=== PATIENT | female | born 1985 | race Caucasian/White ===

== ENCOUNTER 2018-07-21 04:57 | Inpatient (IN) | payer OTHER ==
[2018-07-21] MEDS ORDERED: Carboprost Tromethamine 250 MCG/1 ML Amp IM PRN (05:13)
[2018-07-21] MEDS ORDERED: Nalbuphine 10 MG/1 ML Vial IVPUSH PRN (05:13)
[2018-07-21] MEDS ORDERED: Water For Irrigation,Sterile 1,000 ML Container IRR PRN (05:13)
[2018-07-21] MEDS ORDERED: Methylergonovine 0.2 MG/1 ML Amp IM PRN (05:13)
[2018-07-21] MEDS ORDERED: Misoprostol 200 MCG Tab PO PRN (05:13)
[2018-07-21] MEDS ORDERED: Sodium Chloride 0.9% 2.5 ML Syringe FLUSH PRN (05:13)
[2018-07-21] MEDS ORDERED: Lidocaine 1% 50 ML MDV INJECT PRN (05:13)
[2018-07-21] MEDS ORDERED: Ondansetron 4 MG/2 ML SDV IV PRN (05:13)
[2018-07-21] MEDS ORDERED: Sodium Chloride 0.9% 10 ML Syringe FLUSH PRN (05:13)
[2018-07-21] MEDS ORDERED: Butorphanol 1 MG/ML SDV IVPUSH PRN (05:13)
[2018-07-21] MEDS ORDERED: Terbutaline 1 MG/ML SDV SUBCUT PRN (05:13)
[2018-07-21] MEDS ORDERED: Tranexamic Acid 1,000 MG in Sodium Chloride 0.9% 100 ML IV PRN (05:13)
[2018-07-21] MEDS ORDERED: Oxytocin/0.9 % Sodium Chloride 30 UNIT/500 ML BAG IV SCH ×2 (05:15)
[2018-07-21] MEDS: Lactated Ringers 1,000 ML IV SCH ×3 (05:38→16:16)
--- NOTE | 2018-07-21 10:37 | PCM.PREANE ---
Preanesthetic Assessment - Anesthesia/Transfusion/Family Hx Anesthesia History: Prior Anesthesia Without Reaction Transfusion History: No Prior Transfusion(s) Type of Transfusion Reactions: Reports: Unknown - Review of Systems General: No Symptoms Pulmonary: No Symptoms Cardiovascular: No Symptoms Gastrointestinal: No Symptoms Neurological: No Symptoms Other: Reports: None - Physical Assessment Height: 5 ft 5 in Weight: 69.853 kg ASA Class: 2 Mental Status: Alert & Oriented x3 Airway Class: Mallampati = 2 Dentition: Reports: Normal Dentition Thyro-Mental Finger Breadths: 3 Mouth Opening Finger Breadths: 3 ROM/Head Extension: Full Lungs: Clear to Auscultation, Normal Respiratory Effort Cardiovascular: Regular Rate, Regular Rhythm - Lab Values: Laboratory Last Values WBC 9.86 K/uL (4.0-11.0) 07/21/18 05:29 RBC 3.79 M/uL (4.30-5.90) L 07/21/18 05:29 Hgb 13.1 g/dL (12.0-16.0) 07/21/18 05:29 Hct 37.2 % (36.0-46.0) 07/21/18 05:29 MCV 98.2 fL (80.0-98.0) H 07/21/18 05:29 MCH 34.6 pg (27.0-32.0) H 07/21/18 05:29 MCHC 35.2 g/dL (31.0-37.0) 07/21/18 05:29 RDW Std Deviation 44.5 fl (28.0-62.0) 07/21/18 05:29 RDW Coeff of Teodoro 12 % (11.0-15.0) 07/21/18 05:29 Plt Count 188 K/uL (150-400) 07/21/18 05:29 MPV 9.50 fL (7.40-12.00) 07/21/18 05:29 Nucleated RBC % 0.0 /100WBC 07/21/18 05:29 Nucleated RBCs # 0 K/uL 07/21/18 05:29 Blood Type A POSITIVE 07/21/18 05:29 Antibody Screen NEGATIVE 07/21/18 05:29 - Allergies Allergies/Adverse Reactions: Allergies Allergy/AdvReac Type Severity Reaction Status Date / Time No Known Allergies Allergy Verified 02/04/14 08:18 - Acknowledgements Anesthesia Type Planned: Epidural Pt an Appropriate Candidate for the Planned Anesthesia: Yes Alternatives and Risks of Anesthesia Discussed w Pt/Guardian: Yes Pt/Guardian Understands and Agrees with Anesthesia Plan: Yes PreAnesthesia Questionnaire - Past Health History Medical/Surgical History: Denies Medical/Surgical History HEENT History: Reports: None Cardiovascular History: Reports: Other (See Below) Other Cardiovascular History: Varicose veins to left leg from foot to mid thigh. 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 Female Surgical History: Reports: Dilitation & Evacuation - SUBSTANCE USE Smoking Status *Q: Never Smoker Tobacco Use Within Last Twelve Months: No Second Hand Smoke Exposure: No Recreational Drug Use History: No - HOME MEDS Home Medications: Home Meds Acetaminophen [Tylenol Extra Strength] 500 mg PO Q4H PRN #1 tab 02/05/14 [Rx] Ibuprofen [Motrin] 400 mg PO Q4H PRN #1 tablet 02/05/14 [Rx] Lanolin [Lansinoh HPA] 40 gm TOP ASDIRECTED PRN #1 crm 02/05/14 [Rx] - CURRENT (IN HOUSE) MEDS Current Meds: Current Medications Butorphanol Tartrate (Stadol) 1 mg IVPUSH Q1H PRN PRN Reason: Pain Carboprost Tromethamine (Hemabate Ds) 250 mcg IM ASDIRECTED PRN PRN Reason: Post Hemorrhage Lactated Ringer's (Ringers, Lactated) 1,000 mls @ 150 mls/hr IV ASDIRECTED YEE Last Admin: 07/21/18 10:33 Dose: 150 mls/hr Oxytocin/Sodium Chloride (Oxytocin 30 Unit/500 Ml-Ns) 30 unit in 500 mls @ 999 mls/hr IV TITRATE YEE Oxytocin/Sodium Chloride (Oxytocin 30 Unit/500 Ml-Ns) 30 unit in 500 mls @ 2 mls/hr IV TITRATE YEE; Protocol Last Titration: 07/21/18 09:54 Dose: 8 munits/min, 8 mls/hr Tranexamic Acid 1,000 mg/ (Sodium Chloride) 110 mls @ 660 mls/hr IV ONETIME PRN PRN Reason: Bleeding Lidocaine HCl (Xylocaine 1%) 50 ml INJECT ONETIME PRN PRN Reason: Laceration repair Methylergonovine Maleate (Methergine) 0.2 mg IM ASDIRECTED PRN PRN Reason: Post Hemorrhage Misoprostol (Cytotec) 200 mcg PO ONETIME PRN PRN Reason: Post Hemorrhage Nalbuphine HCl (Nubain) 10 mg IVPUSH Q1H PRN PRN Reason: Pain (severe 7-10) Ondansetron HCl (Zofran) 4 mg IV Q6H PRN PRN Reason: Nausea/Vomiting Sodium Chloride (Saline Flush) 10 ml FLUSH ASDIRECTED PRN PRN Reason: Keep Vein Open Sodium Chloride (Saline Flush) 2.5 ml FLUSH ASDIRECTED PRN PRN Reason: Keep Vein Open Sterile Water (Sterile Water For Irrigation) 1,000 ml IRR ASDIRECTED PRN PRN Reason: delivery Terbutaline Sulfate (Brethine) 0.25 mg SUBCUT ASDIRECTED PRN PRN Reason: Tacysystole
[2018-07-21] MEDS ORDERED: Lidocaine HCl/EPINEPHrine 5 ML IJ ONE (10:45)
--- NOTE | 2018-07-21 15:34 | PCM.DEL ---
L & D Note - General Info Date of Service: 07/21/18 - Delivery Note Labor: Induced by Oxytocin Delivery Outcome: Livebirth Infant Delivery Method: Spontaneous Vaginal Delivery-Single Delivery Mode: Spontaneous Presentation: Left Occiput Anterior (SHAN) Nuchal Cord: Present, Reduced Prep: Other Anesthesia Type: Epidural Amniotic Fluid Description: Clear Episiotomy Type: None Laceration: None Placenta: Intact, Spontaneous Cord: 3 Vessels Estimated Blood Loss: 50 Resuscitation Needed: No Score 1 min: 8 Score 5 min: 9 Induction Criteria - Weiss Score Weiss Score Dilation: 1-2 cm Weiss Score Effacement: 40-50% Weiss Score Infant's Station: -3 Weiss Score Consistency: Firm Weiss Score Cervix Position: Midposition Weiss Score Total: 3 Weiss Score Presenting Part: Reports: Cephalic - Induction Gestational Age >/= 39 wks: Yes Estimated Pelvis: Reports: Adequate Reassuring Monitoring Strip: Yes Absence of Tachy Systole: Yes - General Info Date of Service: 07/21/18 - Patient Data Weight - Most Recent: 154 lb Lab Results Last 24 Hours: Laboratory Results - last 24 hr 07/21/18 07/21/18 Range/Units 05:29 05:29 WBC 9.86 (4.0-11.0) K/uL RBC 3.79 L (4.30-5.90) M/uL Hgb 13.1 (12.0-16.0) g/dL Hct 37.2 (36.0-46.0) % MCV 98.2 H (80.0-98.0) fL MCH 34.6 H (27.0-32.0) pg MCHC 35.2 (31.0-37.0) g/dL RDW Std Deviation 44.5 (28.0-62.0) fl RDW Coeff of Teodoro 12 (11.0-15.0) % Plt Count 188 (150-400) K/uL MPV 9.50 (7.40-12.00) fL Nucleated RBC % 0.0 /100WBC Nucleated RBCs # 0 K/uL Blood Type A POSITIVE Antibody Screen NEGATIVE Med Orders - Current: Current Medications Butorphanol Tartrate (Stadol) 1 mg IVPUSH Q1H PRN PRN Reason: Pain Carboprost Tromethamine (Hemabate Ds) 250 mcg IM ASDIRECTED PRN PRN Reason: Post Hemorrhage Lactated Ringer's (Ringers, Lactated) 1,000 mls @ 150 mls/hr IV ASDIRECTED YEE Last Admin: 07/21/18 10:33 Dose: 150 mls/hr Oxytocin/Sodium Chloride (Oxytocin 30 Unit/500 Ml-Ns) 30 unit in 500 mls @ 999 mls/hr IV TITRATE YEE Oxytocin/Sodium Chloride (Oxytocin 30 Unit/500 Ml-Ns) 30 unit in 500 mls @ 2 mls/hr IV TITRATE YEE; Protocol Last Titration: 07/21/18 14:29 Dose: 0 munits/min, 0 mls/hr Tranexamic Acid 1,000 mg/ (Sodium Chloride) 110 mls @ 660 mls/hr IV ONETIME PRN PRN Reason: Bleeding Lidocaine HCl (Xylocaine 1%) 50 ml INJECT ONETIME PRN PRN Reason: Laceration repair Methylergonovine Maleate (Methergine) 0.2 mg IM ASDIRECTED PRN PRN Reason: Post Hemorrhage Misoprostol (Cytotec) 200 mcg PO ONETIME PRN PRN Reason: Post Hemorrhage Nalbuphine HCl (Nubain) 10 mg IVPUSH Q1H PRN PRN Reason: Pain (severe 7-10) Ondansetron HCl (Zofran) 4 mg IV Q6H PRN PRN Reason: Nausea/Vomiting Sodium Chloride (Saline Flush) 10 ml FLUSH ASDIRECTED PRN PRN Reason: Keep Vein Open Sodium Chloride (Saline Flush) 2.5 ml FLUSH ASDIRECTED PRN PRN Reason: Keep Vein Open Sterile Water (Sterile Water For Irrigation) 1,000 ml IRR ASDIRECTED PRN PRN Reason: delivery Terbutaline Sulfate (Brethine) 0.25 mg SUBCUT ASDIRECTED PRN PRN Reason: Tacysystole Discontinued Medications Fentanyl/Bupivacaine HCl (Vodweotw-Eeorh-Fi 2 Mcg/Ml-0.125%) Confirm Administered Dose 100 mls @ as directed .ROUTE .[employer]-MED ONE Stop: 07/21/18 10:40 Lidocaine/Epinephrine (Lidocaine 1.5%-Epi 1:200,000) Confirm Administered Dose 5 ml IJ .STK-MED ONE Stop: 07/21/18 10:46 - Problem List & Annotations (1) Vaginal delivery SNOMED Code(s): 941518991 Code(s): O80 - ENCOUNTER FOR FULL-TERM UNCOMPLICATED DELIVERY Status: Acute Current Visit: No - Problem List Review Problem List Initiated/Reviewed/Updated: Yes - My Orders Last 24 Hours: My Active Orders 07/21/18 05:13 Patient Status [ADT] Routine Bedrest Bathroom Privileges [RC] ASDIRECTED Communication Order [RC] ASDIRECTED May Shower [RC] ASDIRECTED Notify Provider [RC] PRN Oxygen Therapy [RC] ASDIRECTED Up ad Sara [RC] ASDIRECTED Vital Signs [RC] PER UNIT ROUTINE Butorphanol [Stadol] 1 mg IVPUSH Q1H PRN Carboprost Tromethamine [Hemabate DS] 250 mcg IM ASDIRECTED PRN Lidocaine 1% [Xylocaine 1%] 50 ml INJECT ONETIME PRN Methylergonovine [Methergine] 0.2 mg IM ASDIRECTED PRN Nalbuphine [Nubain] 10 mg IVPUSH Q1H PRN Ondansetron [Zofran] 4 mg IV Q6H PRN Sodium Chloride 0.9% [Saline Flush] 10 ml FLUSH ASDIRECTED PRN Sodium Chloride 0.9% [Saline Flush] 2.5 ml FLUSH ASDIRECTED PRN Terbutaline [Brethine] 0.25 mg SUBCUT ASDIRECTED PRN Tranexamic Acid [Cyklokapron] 1,000 mg Sodium Chloride 0.9% [Normal Saline] 100 ml IV ONETIME Water For Irrigation,Sterile [Sterile Water for Irrigation] 1,000 ml IRR ASDIRECTED PRN miSOPROStol [Cytotec] 200 mcg PO ONETIME PRN Scalp Electrode [WOMSER] Per Unit Routine Peripheral IV Insertion Adult [OM.PC] Routine Resuscitation Status Routine 07/21/18 05:15 Lactated Ringers [Ringers, Lactated] 1,000 ml IV ASDIRECTED Oxytocin/0.9 % Sodium Chloride [Oxytocin 30 Unit/500 ML-NS] 30 unit in 500 ml IV TITRATE Oxytocin/0.9 % Sodium Chloride [Oxytocin 30 Unit/500 ML-NS] 30 unit in 500 ml IV TITRATE Medication Administration Instruction [OM.PC] Q3H 07/21/18 Breakfast Clear Liquid Diet [DIET]
[2018-07-21] MEDS ORDERED: Bisacodyl 10 MG Supp RECTAL PRN (15:35)
[2018-07-21] MEDS ORDERED: oxyCODONE 5 MG Tab PO PRN (15:35)
[2018-07-21] MEDS ORDERED: Docusate Sodium 100 MG Cap PO PRN (15:35)
[2018-07-21] MEDS ORDERED: Witch Hazel Medicated Pads 40/Jar TOP PRN (15:35)
[2018-07-21] MEDS ORDERED: Ibuprofen 400 MG Tab PO PRN (15:35)
[2018-07-21] MEDS ORDERED: Acetaminophen 500 MG Tab PO PRN (15:35)
[2018-07-21] MEDS ORDERED: Benzocaine/Menthol 20%-0.5% Spray 78 GM Cannister TOP PRN (15:35)
[2018-07-21] MEDS ORDERED: Lanolin 100% Cream 7 GM Tube TOP PRN (15:35)
[2018-07-21] MEDS ORDERED: ceFAZolin 2 GM in Premix Bag 1 BAG IV ONE (16:00)
[2018-07-21] MEDS ORDERED: ceFAZolin/Dextrose,Iso-Osmotic 2 GM/50 ML Duplex Bag IV ONE (16:30)
[2018-07-21] MEDS: Ibuprofen 800 MG Tab PO PRN (20:21)
[2018-07-22] MEDS: Acetaminophen 500 MG Tab PO PRN ×3 (00:38→13:34)
--- NOTE | 2018-07-22 01:28 | OR ---
SURGEON: Althea Aragon MD DATE OF PROCEDURE: 07/21/2018 PREOPERATIVE DIAGNOSES: 1. Term at 39 weeks gestation. 2. Elective Induction of labor. 3. History of precipitate labor, lives remote from the hospital. POSTOPERATIVE DIAGNOSES: 1. Term at 39 weeks gestation. 2. Elective Induction of labor. 3. History of precipitate labor, lives remote from the hospital. 4. Delivered. PROCEDURE: Spontaneous vaginal delivery. ANESTHESIA: Epidural. ESTIMATED BLOOD LOSS: 50 mL. COMPLICATIONS: None. DISPOSITION: Mother and baby stable in Labor and Delivery room, bonding. FINDINGS: Female infant, weight pending at dictation. scores 8 and 9 at one and five minute respectively. Grossly normal placenta with three-vessel cord. Intact perineum. BRIEF HISTORY: [place] is a G9, P5, who was admitted this morning at 39 weeks gestation for induction of labor due to history of precipitate labor and living remote from the hospital. Her care was complicated by placenta synechiae with adequate growth on serial ultrasounds with no parts entrapment seen. She is GBS negative. She was admitted, oxytocin infusion started and titrated up as per protocol for induction of labor. Artificial rupture of membranes was performed at about 10:30 this morning when she was 3 cm dilated, 80% effaced, and station -2, with clear amniotic fluid noted. Contractions then became regular and she became fully dilated approximately 4 hours later and commenced active pushing. She pushed for about 40 minutes bringing the head down to +4 station and was set up for delivery in a modified dorsal lithotomy position. heart tracing was category 1 during the intrapartum phase and category 2 at second stage. DESCRIPTION OF PROCEDURE: She had a spontaneous vaginal delivery of a live female infant in a left occipital anterior position with a nuchal cord x1 which was easily reduced. No difficulty delivering the anterior and posterior shoulders and the rest of the baby. The baby was vigorous and cried spontaneously at . It was then delivered onto the maternal abdomen and delayed cord clamping was observed with the cord subsequently cut by the father of the baby. With delivery of the , oxytocin infusion was converted to titration for active management of third stage of labor. Cord blood and gases were obtained. Placenta was delivered by controlled cord traction appeared to be complete and intact. Examination of the perineum revealed no lacerations. Uterine massage was performed. The uterus was found to be well contracted below the umbilicus. The patient tolerated the procedure well. Sponge, instrument, and needle counts were correct at the end of the delivery. IJEOMA / STEPHANY /[id number] MTDD
[2018-07-22] MEDS: Ibuprofen 800 MG Tab PO PRN ×3 (03:22→17:16)
[2018-07-22 07:55] VITALS: BP 129/68
--- NOTE | 2018-07-22 08:20 | PCM.PNPP ---
<Johanne Brewer - Last Filed: 07/22/18 08:18> - General Info Date of Service: 07/22/18 Functional Status: Reports: Pain Controlled, Tolerating Diet, Ambulating, Urinating - Review of Systems General: Denies: Fever, Weakness, Fatigue Pulmonary: Denies: Shortness of Breath, Pleuritic Chest Pain, Cough Cardiovascular: Denies: Chest Pain, Palpitations, Dyspnea on Exertion Gastrointestinal: Denies: Abdominal Pain Genitourinary: Denies: Dysuria - General Info Date of Service: 07/22/18 - Patient Data Vital Signs - Most Recent: Last Vital Signs Temp 36.2 C 07/22/18 07:25 Pulse 64 07/22/18 07:25 Resp 16 07/22/18 07:25 BP 129/68 07/22/18 07:25 Pulse Ox 97 07/22/18 07:25 Weight - Most Recent: 69.853 kg Lab Results - Last 24 Hours: Laboratory Results - last 24 hr 07/21/18 07/22/18 Range/Units 15:06 04:44 Hgb 12.3 (12.0-16.0) g/dL Hct 35.2 L (36.0-46.0) % Cord ABG pH 7.266 (7.18-7.38) Cord ABG Base Excess -4 (-10--2) Cord VBG pH 7.332 (7.25-7.45) Cord VBG Base Excess -5 (-10--2) Med Orders - Current: Current Medications Acetaminophen (Tylenol Extra Strength) 500 mg PO Q4H PRN PRN Reason: Pain Acetaminophen (Tylenol Extra Strength) 1,000 mg PO Q4H PRN PRN Reason: Pain Last Admin: 07/22/18 07:33 Dose: 1,000 mg Benzocaine/Menthol (Dermoplast Pain Relief 20%-0.5% [place]) 78 gm TOP ASDIRECTED PRN PRN Reason: Perineal Comfort Measure Last Admin: 07/21/18 20:23 Dose: 1 canister Bisacodyl (Dulcolax) 10 mg RECTAL ONETIME PRN PRN Reason: Constipation Docusate Sodium (Colace) 100 mg PO BID PRN PRN Reason: Constipation Emollient Ointment (Lansinoh Hpa) 0 gm TOP ASDIRECTED PRN PRN Reason: Sore Nipples Ibuprofen (Motrin) 400 mg PO Q4H PRN PRN Reason: Pain Ibuprofen (Motrin) 800 mg PO Q6H PRN PRN Reason: Pain Last Admin: 07/22/18 03:22 Dose: 800 mg Oxycodone HCl (Oxycodone) 5 mg PO Q2H PRN PRN Reason: Pain Witch Heidi (Tucks) 1 pad TOP ASDIRECTED PRN PRN Reason: comfort care Last Admin: 07/21/18 20:22 Dose: 1 tub Discontinued Medications Butorphanol Tartrate (Stadol) 1 mg IVPUSH Q1H PRN PRN Reason: Pain Carboprost Tromethamine (Hemabate Ds) 250 mcg IM ASDIRECTED PRN PRN Reason: Post Hemorrhage Cefazolin Sodium/Dextrose (Ancef) Confirm Administered Dose 2 gm IV .STK-MED ONE Stop: 07/21/18 16:31 Last Admin: 07/21/18 20:50 Dose: Not Given Lactated Ringer's (Ringers, Lactated) 1,000 mls @ 150 mls/hr IV ASDIRECTED YEE Last Admin: 07/21/18 16:16 Dose: 150 mls/hr Oxytocin/Sodium Chloride (Oxytocin 30 Unit/500 Ml-Ns) 30 unit in 500 mls @ 999 mls/hr IV TITRATE YEE Oxytocin/Sodium Chloride (Oxytocin 30 Unit/500 Ml-Ns) 30 unit in 500 mls @ 2 mls/hr IV TITRATE YEE; Protocol Last Titration: 07/21/18 14:29 Dose: 0 munits/min, 0 mls/hr Tranexamic Acid 1,000 mg/ (Sodium Chloride) 110 mls @ 660 mls/hr IV ONETIME PRN PRN Reason: Bleeding Fentanyl/Bupivacaine HCl (Klzcrvlm-Xcyfp-Vl 2 Mcg/Ml-0.125%) Confirm Administered Dose 100 mls @ as directed .ROUTE .STK-MED ONE Stop: 07/21/18 10:40 Last Admin: 07/21/18 20:51 Dose: Not Given Cefazolin Sodium/Dextrose 2 gm (/ Premix) 50 mls @ 100 mls/hr IV ONETIME ONE Stop: 07/21/18 16:29 Last Admin: 07/21/18 20:50 Dose: Not Given Lidocaine HCl (Xylocaine 1%) 50 ml INJECT ONETIME PRN PRN Reason: Laceration repair Lidocaine/Epinephrine (Lidocaine 1.5%-Epi 1:200,000) Confirm Administered Dose 5 ml IJ .[facility]-MED ONE Stop: 07/21/18 10:46 Last Admin: 07/21/18 20:51 Dose: Not Given Methylergonovine Maleate (Methergine) 0.2 mg IM ASDIRECTED PRN PRN Reason: Post Hemorrhage Misoprostol (Cytotec) 200 mcg PO ONETIME PRN PRN Reason: Post Hemorrhage Nalbuphine HCl (Nubain) 10 mg IVPUSH Q1H PRN PRN Reason: Pain (severe 7-10) Ondansetron HCl (Zofran) 4 mg IV Q6H PRN PRN Reason: Nausea/Vomiting Sodium Chloride (Saline Flush) 10 ml FLUSH ASDIRECTED PRN PRN Reason: Keep Vein Open Sodium Chloride (Saline Flush) 2.5 ml FLUSH ASDIRECTED PRN PRN Reason: Keep Vein Open Sterile Water (Sterile Water For Irrigation) 1,000 ml IRR ASDIRECTED PRN PRN Reason: delivery Terbutaline Sulfate (Brethine) 0.25 mg SUBCUT ASDIRECTED PRN PRN Reason: Tacysystole - Interaction Infant Disposition, : [place] in Room with Family Interaction: Holding Infant Feeding: Breastfed Infant; Nursed Well Support Person: - Recovery Exam Fundal Tone: Firm Fundal Level: 2 Fingerbreadths Below Umbilicus Fundal Placement: Midline Lochia Amount: Scant Lochia Color: Rubra/Red Perineum Description: Intact, Minimal Bruising/Swelling Episiotomy/Laceration: None Bladder Status: Voiding - Exam General: Alert, Oriented Neck: Supple Lungs: Clear to Auscultation, Normal Respiratory Effort Cardiovascular: Regular Rate, Regular Rhythm Extremities: Normal Inspection, Non-Tender, Normal Capillary Refill, Pedal Edema (trce) Skin: Warm, Dry, Intact - Problem List & Annotations (1) Vaginal delivery SNOMED Code(s): 066818795 Code(s): O80 - ENCOUNTER FOR FULL-TERM UNCOMPLICATED DELIVERY Status: Acute Current Visit: No - Problem List Review Problem List Initiated/Reviewed/Updated: Yes - Assessment Assessment:: PPD #1 s/p . Minimal pain and lochia. Breast feeding well. Discharge home today. - Plan Plan:: Discharge home today. Can use OTC tylenol as needed for pain. Instructed patient to call if she develops fever greater than 101 or bleeding through a large pad an hour. Continue PNV while breast feeding. F/U with [facility] in 6 weeks <Samanta Carpio - Last Filed: 07/22/18 11:05> - Patient Data Vital Signs - Most Recent: Last Vital Signs Temp 36.2 C 07/22/18 07:25 Pulse 64 07/22/18 07:25 Resp 16 07/22/18 07:25 BP 129/68 07/22/18 07:25 Pulse Ox 97 07/22/18 07:25 Lab Results - Last 24 Hours: Laboratory Results - last 24 hr 07/21/18 07/22/18 Range/Units 15:06 04:44 Hgb 12.3 (12.0-16.0) g/dL Hct 35.2 L (36.0-46.0) % Cord ABG pH 7.266 (7.18-7.38) Cord ABG Base Excess -4 (-10--2) Cord VBG pH 7.332 (7.25-7.45) Cord VBG Base Excess -5 (-10--2) Med Orders - Current: Current Medications Acetaminophen (Tylenol Extra Strength) 500 mg PO Q4H PRN PRN Reason: Pain Acetaminophen (Tylenol Extra Strength) 1,000 mg PO Q4H PRN PRN Reason: Pain Last Admin: 07/22/18 07:33 Dose: 1,000 mg Benzocaine/Menthol (Dermoplast Pain Relief 20%-0.5% [place]) 78 gm TOP ASDIRECTED PRN PRN Reason: Perineal Comfort Measure Last Admin: 07/21/18 20:23 Dose: 1 canister Bisacodyl (Dulcolax) 10 mg RECTAL ONETIME PRN PRN Reason: Constipation Docusate Sodium (Colace) 100 mg PO BID PRN PRN Reason: Constipation Emollient Ointment (Lansinoh Hpa) 0 gm TOP ASDIRECTED PRN PRN Reason: Sore Nipples Ibuprofen (Motrin) 400 mg PO Q4H PRN PRN Reason: Pain Ibuprofen (Motrin) 800 mg PO Q6H PRN PRN Reason: Pain Last Admin: 07/22/18 09:38 Dose: 800 mg Oxycodone HCl (Oxycodone) 5 mg PO Q2H PRN PRN Reason: Pain Witch Heidi (Tucks) 1 pad TOP ASDIRECTED PRN PRN Reason: comfort care Last Admin: 07/21/18 20:22 Dose: 1 tub Discontinued Medications Butorphanol Tartrate (Stadol) 1 mg IVPUSH Q1H PRN PRN Reason: Pain Carboprost Tromethamine (Hemabate Ds) 250 mcg IM ASDIRECTED PRN PRN Reason: Post Hemorrhage Cefazolin Sodium/Dextrose (Ancef) Confirm Administered Dose 2 gm IV .[employer]MED ONE Stop: 07/21/18 16:31 Last Admin: 07/21/18 20:50 Dose: Not Given Lactated Ringer's (Ringers, Lactated) 1,000 mls @ 150 mls/hr IV ASDIRECTED YEE Last Admin: 07/21/18 16:16 Dose: 150 mls/hr Oxytocin/Sodium Chloride (Oxytocin 30 Unit/500 Ml-Ns) 30 unit in 500 mls @ 999 mls/hr IV TITRATE YEE Oxytocin/Sodium Chloride (Oxytocin 30 Unit/500 Ml-Ns) 30 unit in 500 mls @ 2 mls/hr IV TITRATE YEE; Protocol Last Titration: 07/21/18 14:29 Dose: 0 munits/min, 0 mls/hr Tranexamic Acid 1,000 mg/ (Sodium Chloride) 110 mls @ 660 mls/hr IV ONETIME PRN PRN Reason: Bleeding Fentanyl/Bupivacaine HCl (Fukcarvi-Fdeze-Zp 2 Mcg/Ml-0.125%) Confirm Administered Dose 100 mls @ as directed .ROUTE .STK-MED ONE Stop: 07/21/18 10:40 Last Admin: 07/21/18 20:51 Dose: Not Given Cefazolin Sodium/Dextrose 2 gm (/ Premix) 50 mls @ 100 mls/hr IV ONETIME ONE Stop: 07/21/18 16:29 Last Admin: 07/21/18 20:50 Dose: Not Given Lidocaine HCl (Xylocaine 1%) 50 ml INJECT ONETIME PRN PRN Reason: Laceration repair Lidocaine/Epinephrine (Lidocaine 1.5%-Epi 1:200,000) Confirm Administered Dose 5 ml IJ .STK-MED ONE Stop: 07/21/18 10:46 Last Admin: 07/21/18 20:51 Dose: Not Given Methylergonovine Maleate (Methergine) 0.2 mg IM ASDIRECTED PRN PRN Reason: Post Hemorrhage Misoprostol (Cytotec) 200 mcg PO ONETIME PRN PRN Reason: Post Hemorrhage Nalbuphine HCl (Nubain) 10 mg IVPUSH Q1H PRN PRN Reason: Pain (severe 7-10) Ondansetron HCl (Zofran) 4 mg IV Q6H PRN PRN Reason: Nausea/Vomiting Sodium Chloride (Saline Flush) 10 ml FLUSH ASDIRECTED PRN PRN Reason: Keep Vein Open Sodium Chloride (Saline Flush) 2.5 ml FLUSH ASDIRECTED PRN PRN Reason: Keep Vein Open Sterile Water (Sterile Water For Irrigation) 1,000 ml IRR ASDIRECTED PRN PRN Reason: delivery Terbutaline Sulfate (Brethine) 0.25 mg SUBCUT ASDIRECTED PRN PRN Reason: Tacysystole - Assessment Assessment:: PPD1 , stable - Plan Plan:: Discharge home today
--- NOTE | 2018-07-23 07:08 | PCM48HPAN ---
Post Anesthesia Note - EVALUATION WITHIN 48HRS OF ANESTHETIC Vital Signs in Normal Range: Yes Patient Participated in Evaluation: Yes Respiratory Function Stable: Yes Airway Patent: Yes Cardiovascular Function Stable: Yes Hydration Status Stable: Yes Pain Control Satisfactory: Yes Nausea and Vomiting Control Satisfactory: Yes Mental Status Recovered: Yes Resp Rate: 16
== END 2018-07-22 17:40 | disposition home or self-care (01) | DRG 807 ==
LOC: MW.OBCHECK 04:57 → MW.OB 05:01 → MW.OBCHECK 05:13 → MW.OB 05:13 → OBSVTOIN 15:35 → MW.OB 07-22 00:56
PROVIDERS: ADMIT Obstetrics & Gynecology; ATTEND Obstetrics & Gynecology
PROC: 10907ZC Drainage of Amniotic Fluid, Therapeutic from Products of Conception, Via Natural or Artificial Opening (ICD-10-PCS; principal; 2018-07-21)
PROC: 3E033VJ Introduction of Other Hormone into Peripheral Vein, Percutaneous Approach (ICD-10-PCS; principal; 2018-07-21)
PROC: 6A550ZT Pheresis of Cord Blood Stem Cells, Single (ICD-10-PCS; principal; 2018-07-21)
PROC: 10E0XZZ Delivery of Products of Conception, External Approach (ICD-10-PCS; principal; 2018-07-21)
PROC: 00HU33Z Insertion of Infusion Device into Spinal Canal, Percutaneous Approach (ICD-10-PCS; 2018-07-21)
PROC: 3E0R3BZ Introduction of Anesthetic Agent into Spinal Canal, Percutaneous Approach (ICD-10-PCS; 2018-07-21)
DX: O99.284 Endocrine, nutritional and metabolic diseases complicating childbirth (principal); Z37.0 Single live birth; O99.62 Diseases of the digestive system complicating childbirth; O69.81X0 Labor and delivery complicated by cord around neck, without compression, not applicable or unspecified; Z3A.39 39 weeks gestation of pregnancy; K21.9 Gastro-esophageal reflux disease without esophagitis; O87.4 Varicose veins of lower extremity in the puerperium; E05.90 Thyrotoxicosis, unspecified without thyrotoxic crisis or storm
CPT/HCPCS: 36415; 51702; 59025; 59409; 82803; 85014; 85018; 85027; 86850; 86900; 86901; A9270-GY; J2590; J7120